=== PATIENT | female | born 1975 | race Hispanic/Latino ===

== ENCOUNTER → 2019-08-03 | Outpatient (CLI) | payer OTHER ==
--- NOTE | 2019-08-03 10:57 | Diagnostic Imaging Report ---
Exam: Chest radiograph Clinical History: Hypertension Findings: The cardiomediastinal silhouette and lungs are normal. The regional skeleton and soft tissue are unremarkable. There is no evidence of pleural effusion or pneumothorax. Impression: No radiographic evidence of acute cardiopulmonary disease. Signed by: Dr. Jered Meyer MD on 08/03/2019 10:53 AM
== END ==
LOC: RAD 10:13
PROVIDERS: ATTEND Internal Medicine
DX: I10 Essential (primary) hypertension (principal)
CPT/HCPCS: 71046

== ENCOUNTER 2019-08-12 13:01 | Emergency (ER) | payer OTHER ==
[~2019-08-12] VITALS: Ht 162.6 cm; Wt 108.4 kg
--- OUTSIDE RECORDS SUMMARY | 2019-08-12 13:03 | XMS REPORT ---
Author Author [facility] t Organization [facility] Address [address] [place] [address] [address] [place] [address] Phone Unavailable Care Team Providers Care Guitar Maker Name Role Phone DM BECKWITH Unavailable Payers Payer Name Policy Type Policy Number Effective Date Expiration Date S ource Problems This patient has no known problems. Allergies, Adverse Reactions, Alerts Allergy Name Allergy Type Status Severity Reaction(s) Onset Date Inacti ve Date Treating Clinician Comments Source No Known Allergies DA Active U 2012-11-14 00:00:00 [facility] Medications This patient has no known medications. Procedures This patient has no known procedures. Results Test Description Test Time Test Comments Results Result Comments Source CHEST 2 VIEWS 2019-08-03 10:53:00 [facility] [address] [place], [place] [address] Patient Name: CYDNEY PASTRANA MR #: [id number] : 1975 Age/Sex: 43/F Req #: [id number] Adm Physician: Ordered by: DM BECKWITH MD Report #: [id number] Location: [facility] Room/Bed: Procedure: [id number] DX/CHEST 2 VIEWS Exam Date: 08/03/19 Exam Time: 1040 REPORT STATUS: Signed Exam: Chest radiograph Clinical History: Hypertension Findings: The cardiomediastinal silhouette and lungs are normal. The regional skeleton and soft tissue are unremarkable. There is no evidence of pleural effusion or pneumothorax. Impression: No radiographic evidence of acute cardiopulmonary disease. Signed by: Dr. Jered Meyer MD on 08/03/2019 10:53 AM Dictated By: ENEDINA MEYER MD [id number] Transcribed By: ALLI on 08/03/19 1053 COPY TO: DM BECKWITH MD
[2019-08-12] MEDS ORDERED: MORPHINE SULFATE INJ 4 MG/ML INJ 1ML IV NR (13:15)
[2019-08-12] MEDS ORDERED: ONDANSETRON HCL INJ 2MG/ML 2ML 2 MG/ML VIAL IV NR (13:15)
[2019-08-12] MEDS ORDERED: CEFTRIAXONE SOD 1 GM/NS 50 ML 50 ML IV STA (13:18)
[2019-08-12] MEDS ORDERED: SODIUM CHLORIDE 0.9% 1000ML 1,000 ML IV STA (13:18)
[2019-08-12] MEDS ORDERED: AMLODIPINE BESY10 MG PO (13:19)
[2019-08-12] MEDS ORDERED: METFORMIN HCL850 MG PO (13:19)
[2019-08-12] MEDS ORDERED: MONTELUKAST SOD10 MG PO (13:19)
[2019-08-12] MEDS ORDERED: ATORVASTATIN CA10 MG PO (13:19)
--- NOTE | 2019-08-12 13:33 | Emergency Department Note ---
History of Present Illnes History of Present Illness Chief Complaint: Flank Pain History of Present Illness This is a 43 year old female .c/o r flank pain Chief Complaint Comment HERE FOR RIGHT SIDED FLANK PAIN FOR THE LAST 2 DAYS THAT HAVE GRADUALLY WORSENED. DENIES NAUSEA, VOMITING AND DIARRHEA. Historian: Patient Arrival Mode: Car Onset (how long ago): day(s) (3 days) Location: r flank pain Radiation: non-radiation, back, neck, extremity, abdomen, periumbilical, flank, proximal, distal, other Severity: moderate Duration (how long): day(s) (2 days) Progression: worsening Context: recent illness, recent surgery, recent immobilization, recent travel, trauma/injury, new medications, hx of DVT/PE, non-compliance w/ medications, other Relieving factors: none Exacerbating factors: none Treatments prior to arrival: none Past Medical/Family History Physician Review I have reviewed the patient's past medical and family history. Any updates have been documented here. Past Medical History Recent Fever: No Clinical Suspicion of Infectio: No New/Unexplained Change in Ment: No Past Medical History: None, Hypertension, Diabetes, Asthma, Hyperlipedemia Past Surgical History: None, Hysterectomy Other Surgery: PARTIAL HYSTERECTOMY Social History Smoking Cessation: Never Smoker Counseling Performed: Yes Any Illegal Drug Use: No TB Exposure/Symptoms: No Physically hurt or threatened: No Family History Family history of heart diseas: No Other Any Pre-Existing Lines (PICC,: No Review of Systems Review of Systems Constitutional: no symptoms EENTM: no symptoms Cardiovascular: no symptoms Respiratory: no symptoms Gastrointestinal: other (r flank pain ) Genitourinary: no symptoms Musculoskeletal: no symptoms Neurological: no symptoms Psychological: no symptoms Endocrine: no symptoms Hematological/Lymphatic: no symptoms Review of other systems All other systems reviewed and negative. Physical Exam Related Data Allergies: Coded Allergies: No Known Allergies (Unverified , 08/12/19) Triage Vital Signs Vital Signs Date Time Temp Pulse Resp B/P (MAP) Pulse Ox O2 Delivery O2 Flow Rate FiO2 08/12/19 13:12 98.1 99 16 149/96 98 Vital signs reviewed: Yes Physical Exam CONSTITUTIONAL Constitutional: well-developed, well-nourished HENT HENT: normocephalic, atraumatic, oropharynx clear/moist, nose normal HENT L/R: left ext ear normal, right ext ear normal EYES Eyes: PERRL, conjunctivae normal NECK Neck: ROM normal PULMONARY Pulmonary: effort normal, breath sounds normal CARDIOVASCULAR Cardiovascular: regular rhythm, heart sounds normal, capillary refill normal, normal rate GASTROINTESTINAL Abdominal: tender, right CVA tenderness, other (r flank pain ) GENITOURINARY Genitourinary: exam deferred SKIN Skin: warm, dry MUSCULOSKELETAL Musculoskeletal: ROM normal NEUROLOGICAL Neurological: alert, oriented x 3, no gross motor or sensory deficits PSYCHOLOGICAL Psychological: mood/affect normal, judgement normal Results Laboratory Laboratory Laboratory Tests Test 08/12/19 13:25 White Blood Count 14.47 x10e3/uL (4.8-10.8) Red Blood Count 4.66 x10e6/uL (3.6-5.1) Hemoglobin 12.5 g/dL (12.0-16.0) Hematocrit 40.5 % (34.2-44.1) Mean Corpuscular Volume 86.9 fL (81-99) Mean Corpuscular Hemoglobin 26.8 pg (28-32) Mean Corpuscular Hemoglobin Concent 30.9 g/dL (31-35) Red Cell Distribution Width 14.6 % (11.7-14.4) Platelet Count 421 x10e3/uL (140-360) Neutrophils (%) (Auto) 69.0 % (38.7-80.0) Lymphocytes (%) (Auto) 22.6 % (18.0-39.1) Monocytes (%) (Auto) 6.2 % (4.4-11.3) Eosinophils (%) (Auto) 1.1 % (0.0-6.0) Basophils (%) (Auto) 0.3 % (0.0-1.0) Neutrophils # (Auto) 10.0 (2.1-6.9) Lymphocytes # (Auto) 3.3 (1.0-3.2) Monocytes # (Auto) 0.9 (0.2-0.8) Eosinophils # (Auto) 0.2 (0.0-0.4) Basophils # (Auto) 0.1 (0.0-0.1) Absolute Immature Granulocyte (auto 0.11 x10e3/uL (0-0.1) Urine Color Yellow (YELLOW) Urine Clarity Sl cloudy (CLEAR) Urine pH 7 (5 - 7) Urine Specific [place] 1.025 (1.010-1.025) Urine Protein Negative (NEGATIVE) Urine Glucose (UA) Negative (NEGATIVE) Urine Ketones Negative (NEGATIVE) Urine Blood Negative (NEGATIVE) Urine Nitrite Negative (NEGATIVE) Urine Bilirubin Negative (NEGATIVE) Urine Urobilinogen 1 mg/dL (0.2 - 1) Urine Leukocyte Esterase Negative (NEGATIVE) Urine RBC 0-5 /HPF (0-5) Urine WBC 0-5 /HPF (0-5) Urine Epithelial Cells Many /LPF (NONE) Urine Bacteria Many /HPF (NONE) Sodium Level 139 mmol/L (136-145) Potassium Level 3.6 mmol/L (3.5-5.1) Chloride Level 105 mmol/L (98-107) Carbon Dioxide Level 22 mmol/L (22-29) Anion Gap 15.6 mmol/L (8-16) Blood Urea Nitrogen 14 mg/dL (7-26) Creatinine 0.73 mg/dL (0.57-1.11) Estimat Glomerular Filtration Rate > 60 ML/MIN (60-) BUN/Creatinine Ratio 19 (6-25) Glucose Level 101 mg/dL (74-118) Calcium Level 9.7 mg/dL (8.4-10.2) Total Bilirubin 0.4 mg/dL (0.2-1.2) Aspartate Amino Transf (AST/SGOT) 20 IU/L (5-34) Alanine Aminotransferase (ALT/SGPT) 24 IU/L (0-55) Alkaline Phosphatase 98 IU/L (40-150) Total Protein 8.1 g/dL (6.5-8.1) Albumin 4.0 g/dL (3.5-5.0) Globulin 4.1 g/dL (2.3-3.5) Albumin/Globulin Ratio 1.0 (0.8-2.0) Lipase 25 U/L (8-78) Imaging Impressions Procedure: [id number] CT/CT ABDOMEN/PELVIS WO Exam Date: 08/12/19 Exam Time: 1355 REPORT STATUS: Signed EXAM: CT Abdomen and Pelvis WITHOUT contrast INDICATION: Stone protocol. COMPARISON: None. TECHNIQUE: Abdomen and pelvis were scanned utilizing a multidetector helical scanner from the lung base to the pubic symphysis without administration of IV contrast. Absence of intravenous contrast decreases sensitivity for detection of focal lesions and vascular pathology. Coronal and sagittal reformations were obtained. Routine protocol was performed. IV CONTRAST: None. ORAL CONTRAST: None. RADIATION DOSE: Total DLP: ... mGy*cm Estimated effective dose: (DLP x 0.015 x size factor) mSv COMPLICATIONS: None FINDINGS: LINES and TUBES: None. LOWER THORAX: Mild dependent atelectasis. HEPATOBILIARY: The liver is diffuse hypodense compared to the spleen, consistent with diffuse hepatic diffuse hepatic steatosis. Hepatomegaly. There is a 1.9 cm relatively hyperdense area within the left hepatic lobe. No biliary ductal dilatation. GALLBLADDER: No radio-opaque stones or sludge. No wall thickening. SPLEEN: No splenomegaly. PANCREAS: No focal masses or ductal dilatation. ADRENALS: No adrenal nodules KIDNEYS/URETERS: No evidence of hydronephrosis or stone. There is a 2.6 cm soft tissue mass in the left upper pole kidney. GI TRACT: No abnormal distention, wall thickening, or evidence of bowel obstruction. Appendix is normal. PELVIC ORGANS/BLADDER: The bladder is decompressed and appears circumferentially thick walled. Status post hysterectomy. LYMPH NODES: No lymphadenopathy. VESSELS: Unremarkable. PERITONEUM / RETROPERITONEUM: No free air or fluid. BONES: Bilateral pars defect at L4 with grade 1 anterolisthesis of L4 on L5. Moderate degenerative disc changes at L4-L5. No acute osseous abnormality. No suspicious lytic or blastic lesions. SOFT TISSUES: Fat-containing right inguinal hernia. Tiny hiatal hernia. IMPRESSION: No evidence of nephrolithiasis. A 2.6 cm left upper pole renal mass. A renal protocol CT or MRI, which can be performed in the nonemergency setting, is recommended for further evaluation. Hepatomegaly with hepatic steatosis. A 1.9 cm relatively hyperdense area in the left hepatic lobe may represent focal fatty sparing or hepatic lesion. This can be further assessed on contrast enhanced CT or MRI. Circumferential wall thickening in the bladder may reflect decompression or cystitis in the appropriate clinical setting. Bilateral pars defect at L4 with grade 1 anterolisthesis of L4 on L5. Moderate degenerative disc changes at L4-L5. Signed by: Dr. Henna Simmons MD on 08/12/2019 3:08 PM Dictated By: HENNA SIMMONS MD [id number] Transcribed By: ALLI on 08/12/19 1508 Critical Care Time Subsequent provider I assumed direction of critical care for this patient from another provider of my specialty. Assessment & Plan Reassessment Reassessment time: 13:32 Reassessment 43yf presented to ed c/o r flank pain x 2 days denies dysuria n/v/d fever - discussed plan of care w/ Dr Gómez - lab ct ordere dpt medicated w/ ns zofran morphine and rocephin Assessment & Plan Final Impression: (1) ACUTE PYELONEPHRITIS Assessment & Plan Dr Gómez in eval pt status discussed lab ct results plan of care and f/u instructions - t made aware of mass to left kidney need for f/u w/ pcp /uro for put pt MRI Plan: 1. Tylenol and Motrin as needed 2. return to ed as needed 3. increase oral fluids 4. follow up wih your doctor / urologist in 1-2 days without fail 5. rx zofran cipro ultram Depart Disposition: HOME, SELF-CARE Last Vital Signs Date Time Temp Pulse Resp B/P (MAP) Pulse Ox O2 Delivery O2 Flow Rate FiO2 08/12/19 13:12 98.1 99 16 149/96 98 Home Meds Reported Medications Metformin Hcl (METFORMIN HCL) 850 Mg Tablet, 850 MG PO HS 08/12/19 Atorvastatin Calcium (ATORVASTATIN CALCIUM) 10 Mg Tablet, 10 MG PO DAILY 08/12/19 Amlodipine Besylate (AMLODIPINE BESYLATE) 10 Mg Tablet, 10 MG PO DAILY 08/12/19 Montelukast Sodium (MONTELUKAST SODIUM) 10 Mg Tablet, 10 MG PO DAILY 08/12/19 Medications in the ED Sodium Chloride 1,000 ml @ 0 mls/hr Q0M STAT IV ; Start 08/12/19 at 13:18; Stop 08/12/19 at 13:19 Ceftriaxone Sodium 50 ml @ 50 mls/hr ONCE STAT IV ; Start 08/12/19 at 13:18; Stop 08/12/19 at 14:17 Morphine Sulfate 4 mg ONCE IV ; Start 08/12/19 at 13:15; Stop 08/12/19 at 14:59 Ondansetron HCl 4 mg ONCE IV ; Start 08/12/19 at 13:15; Stop 08/12/19 at 14:59 LEXY MACIAS HAND II BLOCKER August 12, 2019 13:33
[2019-08-12 13:39] LABS: BASOPHILS # (AUTO) 0.1 (0.0-0.1); BASOPHILS % 0.3 % (0.0-1.0); EOSINOPHILS # (AUTO) 0.2 (0.0-0.4); EOSINOPHILS % 1.1 % (0.0-6.0); HEMATOCRIT 40.5 % (34.2-44.1); HEMOGLOBIN 12.5 g/dL (12.0-16.0); LYMPHOCYTES # (AUTO) 3.3 (1.0-3.2); LYMPHOCYTES % 22.6 % (18.0-39.1); MEAN CORPUSCULAR HEMOGLOBIN 26.8 pg (28-32); MEAN CORPUSCULAR HGB CONC 30.9 g/dL (31-35); MEAN CORPUSCULAR VOLUME 86.9 fL (81-99); MONOCYTES # (AUTO) 0.9 (0.2-0.8); MONOCYTES % 6.2 % (4.4-11.3); PLATELET COUNT 421 x10e3/uL (140-360); RED BLOOD COUNT 4.66 x10e6/uL (3.6-5.1); RED CELL DISTRIBUTION WIDTH 14.6 % (11.7-14.4)
[2019-08-12 13:50] LABS: CLARITY,URINE SL CLOUDY (CLEAR); COLOR,URINE YELLOW (YELLOW); LEUKOCYTE ESTERASE ,URINE NEGATIVE (NEGATIVE); NITRITE,URINE NEGATIVE (NEGATIVE); PROTEIN,URINE DIPSTICK NEGATIVE (NEGATIVE)
[2019-08-12 13:51] LABS: BILIRUBIN,URINE NEGATIVE (NEGATIVE); KETONES,URINE NEGATIVE (NEGATIVE); URINE UROBILINOGEN 1 mg/dL (0.2 - 1)
[2019-08-12 13:58] LABS: BACTERIA,URINE MANY /HPF; EPITHELIAL CELLS,URINE MANY /LPF; RBC,URINE 0-5 /HPF (0-5); WBC,URINE (MAN) 0-5 /HPF (0-5)
[2019-08-12 14:05] LABS: ALANINE AMINOTRANSFERASE 24 IU/L (0-55); ALKALINE PHOSPHATASE 98 IU/L (40-150); ANION GAP 15.6 mmol/L (8-16); BLOOD UREA NITROGEN 14 mg/dL (7-26); BUN/CREATININE RATIO 19 (6-25); CALCIUM 9.7 mg/dL (8.4-10.2); CARBON DIOXIDE 22 mmol/L (22-29); CHLORIDE 105 mmol/L (98-107); CREATININE, SERUM 0.73 mg/dL (0.57-1.11); EST GLOMERULAR FILTRATION RATE > 60 ML/MIN (60-); GLUCOSE 101 mg/dL (74-118); LIPASE 25 U/L (8-78); POTASSIUM 3.6 mmol/L (3.5-5.1); SODIUM 139 mmol/L (136-145)
--- NOTE | 2019-08-12 15:11 | Diagnostic Imaging Report ---
EXAM: CT Abdomen and Pelvis WITHOUT contrast INDICATION: Stone protocol. COMPARISON: None. TECHNIQUE: Abdomen and pelvis were scanned utilizing a multidetector helical scanner from the lung base to the pubic symphysis without administration of IV contrast. Absence of intravenous contrast decreases sensitivity for detection of focal lesions and vascular pathology. Coronal and sagittal reformations were obtained. Routine protocol was performed. IV CONTRAST: None. ORAL CONTRAST: None. RADIATION DOSE: Total DLP: ... mGy*cm Estimated effective dose: (DLP x 0.015 x size factor) mSv COMPLICATIONS: None FINDINGS: LINES and TUBES: None. LOWER THORAX: Mild dependent atelectasis. HEPATOBILIARY: The liver is diffuse hypodense compared to the spleen, consistent with diffuse hepatic diffuse hepatic steatosis. Hepatomegaly. There is a 1.9 cm relatively hyperdense area within the left hepatic lobe. No biliary ductal dilatation. GALLBLADDER: No radio-opaque stones or sludge. No wall thickening. SPLEEN: No splenomegaly. PANCREAS: No focal masses or ductal dilatation. ADRENALS: No adrenal nodules KIDNEYS/URETERS: No evidence of hydronephrosis or stone. There is a 2.6 cm soft tissue mass in the left upper pole kidney. GI TRACT: No abnormal distention, wall thickening, or evidence of bowel obstruction. Appendix is normal. PELVIC ORGANS/BLADDER: The bladder is decompressed and appears circumferentially thick walled. Status post hysterectomy. LYMPH NODES: No lymphadenopathy. VESSELS: Unremarkable. PERITONEUM / RETROPERITONEUM: No free air or fluid. BONES: Bilateral pars defect at L4 with grade 1 anterolisthesis of L4 on L5. Moderate degenerative disc changes at L4-L5. No acute osseous abnormality. No suspicious lytic or blastic lesions. SOFT TISSUES: Fat-containing right inguinal hernia. Tiny hiatal hernia. IMPRESSION: No evidence of nephrolithiasis. A 2.6 cm left upper pole renal mass. A renal protocol CT or MRI, which can be performed in the nonemergency setting, is recommended for further evaluation. Hepatomegaly with hepatic steatosis. A 1.9 cm relatively hyperdense area in the left hepatic lobe may represent focal fatty sparing or hepatic lesion. This can be further assessed on contrast enhanced CT or MRI. Circumferential wall thickening in the bladder may reflect decompression or cystitis in the appropriate clinical setting. Bilateral pars defect at L4 with grade 1 anterolisthesis of L4 on L5. Moderate degenerative disc changes at L4-L5. Signed by: Dr. Henna Bell MD on 08/12/2019 3:08 PM
[2019-08-12 16:32] VITALS: BP 114/72
== END 2019-08-12 16:43 | disposition home or self-care (01) ==
LOC: ER 13:01
DX: M54.5 Low back pain (principal); R10.30 Lower abdominal pain, unspecified; N10 Acute pyelonephritis; I10 Essential (primary) hypertension; E11.9 Type 2 diabetes mellitus without complications; R16.0 Hepatomegaly, not elsewhere classified; E78.5 Hyperlipidemia, unspecified; K76.0 Fatty (change of) liver, not elsewhere classified; J45.909 Unspecified asthma, uncomplicated
CPT/HCPCS: 36415; 74176; 80053; 81001; 83690; 85025; 99284; J0696; J2270; J2405; J7030